=== PATIENT | female | born 1970 | race Caucasian/White ===

== ENCOUNTER 2019-06-19 09:42 | Day surgery (SDC) | payer OTHER ==
[2019-06-17 15:15] VITALS: BMI 29.9
[~2019-06-19 09:42] MED LIST: LACTATED RINGERS 1,000 ML IV SCH; LIDOCAINE 1% 20 ML VIAL (10MG/ML) FOR IV START INTRADERMA PRN
[2019-06-19 10:14] VITALS: TEMP 98.3
[2019-06-19] MEDS ORDERED: PROPOFOL 10 MG/ML 20 ML VIAL IV ONE (11:49)
--- NOTE | 2019-06-19 11:51 | P.GSHP ---
History of Present Illness H&P Date: 06/19/19 Chief Complaint: GERD This is a 48-year-old female referred from Dr. Isabel. Patient complaints of GERD. Patient presents today for EGD. Past Medical History Past Medical History: GERD/Reflux, Hypertension, Rheumatoid Arthritis (RA) Additional Past Medical History / Comment(s): "Kidney biopsy at approx 4 yrs of age because kidneys stopped working. No problems since." Borderline high cholestrol. History of Any Multi-Drug Resistant Organisms: None Reported Additional Past Surgical History / Comment(s): Biopsy of kidney. Past Anesthesia/Blood Transfusion Reactions: No Reported Reaction Additional Past Anesthesia/Blood Transfusion Reaction / Comment(s): Adopted, family history unknown. Past Psychological History: No Psychological Hx Reported Smoking Status: Never smoker Past Alcohol Use History: Occasional Past Drug Use History: None Reported - Past Family History Mother Family Medical History: Unable to Obtain Additional Family Medical History / Comment(s): Patient adopted, family history unknown. Medications and Allergies Home Medications Medication Instructions Recorded Confirmed Type Allergy Pill 1 tab PO DAILY PRN 06/17/19 06/19/19 History Bisoprolol-Hctz 5-6.25 mg [Ziac 1 each PO QAM 06/17/19 06/17/19 History 5-6.25] Ibuprofen [Motrin] 800 mg PO DIRECTED PRN 06/17/19 06/17/19 History Omeprazole 40 mg PO DAILY 06/17/19 06/17/19 History Quinapril HCl [Accupril] 40 mg PO QAM 06/17/19 06/17/19 History Allergies Allergy/AdvReac Type Severity Reaction Status Date / Time hydroxychloroquine Allergy Rash/Hives Verified 06/19/19 10:02 [From Plaquenil] sulfasalazine Allergy Photosensit Verified 06/19/19 10:02 [From Azulfidine] ivity Surgical - Exam Vital Signs Temp Pulse Resp BP Pulse Ox 98.3 F 75 17 161/99 99 06/19/19 10:13 06/19/19 10:13 06/19/19 10:13 06/19/19 10:13 06/19/19 10:13 - General well developed, well nourished, no distress - Eyes PERRL - ENT normal pinna - Neck no masses - Respiratory normal expansion - Cardiovascular Rhythm: regular - Abdomen Abdomen: soft, non tender Assessment and Plan Assessment: GERD. We'll perform EGD.
--- NOTE | 2019-06-19 12:04 | P.OP ---
Date of Procedure: 06/19/19 Preoperative Diagnosis: GERD Postoperative Diagnosis: Antral gastritis Esophagitis Procedure(s) Performed: EGD Anesthesia: MAC Surgeon: Sharan Abbasi Pathology: other (Antral, esophagus) Condition: stable Disposition: PACU Description of Procedure: The patient's placed on the endoscopy table in the lateral position. She received IV sedation. The gastroscope placed oropharynx and passed in the esophagus and into the stomach. The scope was then placed through the pylorus. The first and second portion of the duodenum appeared normal. Scope was then brought back the antrum this was mildly inflamed. A biopsies performed. The scope was then retroflexed and the remainder of the stomach appeared normal. There was no significant hiatal hernia. The GE junction was at 47 is. The patient evidence of chronic esophagitis. Several biopsies performed. Esophagus inflamed. The proximal esophagus appeared normal. Scope was withdrawn for patient.
[2019-06-19 12:15] VITALS: RESP 16
[2019-06-19 12:52] VITALS: BP 140/99; PULSE 70
== END 2019-06-19 12:53 | disposition home or self-care (01) ==
LOC: ORWHC2ENDO 09:42
PROVIDERS: ATTEND Surgery
DX: K21.0 Gastro-esophageal reflux disease with esophagitis (principal); I10 Essential (primary) hypertension; K29.50 Unspecified chronic gastritis without bleeding; M06.9 Rheumatoid arthritis, unspecified; Z88.2 Allergy status to sulfonamides; Z79.1 Long term (current) use of non-steroidal anti-inflammatories (NSAID); Z79.899 Other long term (current) drug therapy; Z88.8 Allergy status to other drugs, medicaments and biological substances
CPT/HCPCS: 81025; 88305; 43239; J2704

== ENCOUNTER → 2019-08-31 | Outpatient (CLI) | payer BC, OTHER ==
--- NOTE | 2019-09-03 09:33 | MM ---
Reason for exam: screening (asymptomatic). Last mammogram was performed 2 years and 11 months ago. History: Patient had first child at age 33. Took hormonal contraceptives for 15 years. Physical Findings: A clinical breast exam by your physician is recommended on an annual basis and results should be correlated with mammographic findings. MG Screening Mammo w CAD Bilateral CC and MLO view(s) were taken. Prior study comparison: September 27, 2016, bilateral MG screening mammo w CAD. April 17, 2014, bilateral MG screening mammo w CAD. The breast tissue is heterogeneously dense. This may lower the sensitivity of mammography. There is no discrete abnormality. ASSESSMENT: Negative, BI-RAD 1 RECOMMENDATION: Routine screening mammogram of both breasts in 1 year.
== END | disposition home or self-care (01) ==
LOC: RADMAMWWP 09:29
PROVIDERS: ATTEND Obstetrics & Gynecology
DX: Z12.31 Encounter for screening mammogram for malignant neoplasm of breast (principal)
CPT/HCPCS: 77067

== ENCOUNTER 2020-03-08 16:38 | Emergency (ER) | payer BC ==
[2020-03-08 16:46] VITALS: PULSE 91; TEMP 98
[2020-03-08] MEDS ORDERED: MECLIZINE 12.5 MG TAB PO STA ×3 (17:01→20:39)
[2020-03-08] MEDS ORDERED: SODIUM CHLORIDE 0.9% 1,000 ML IV STA (17:01)
[2020-03-08] MEDS ORDERED: ONDANSETRON 4 MG/2 ML VIAL IVP STA (17:19)
[2020-03-08 17:35] LABS: ALT 21 U/L (4-34); AST 36 U/L (14-36); African American GFR (CKD) >90 (>60 ml/min/1.73 sqM); Albumin 4.3 g/dL (3.5-5.0); Alkaline Phosphatase 47 U/L (38-126); Anion Gap 7 mmol/L; Blood Urea Nitrogen 16 mg/dL (7-17); Calcium 9.4 mg/dL (8.4-10.2); Carbon Dioxide 23 mmol/L (22-30); Chloride 101 mmol/L (98-107); Glucose 112 mg/dL (74-99); Non-African American GFR(CKD) >90 (>60 ml/min/1.73 sqM); Potassium 3.9 mmol/L (3.5-5.1); Sodium 131 mmol/L (137-145); Total Bilirubin 0.4 mg/dL (0.2-1.3); Total Protein 7.8 g/dL (6.3-8.2)
[2020-03-08 17:47] LABS: Basophils # (A) 0.1 k/uL (0-0.2); Basophils % (A) 1 %; Eosinophils # (A) 0.4 k/uL (0-0.7); Eosinophils % (A) 4 %; HCT 35.2 % (34.0-46.0); HGB 11.8 gm/dL (11.4-16.0); Lymphocytes # (A) 1.8 k/uL (1.0-4.8); Lymphocytes % (A) 20 %; MCH 29.2 pg (25.0-35.0); MCHC 33.4 g/dL (31.0-37.0); MCV 87.4 fL (80.0-100.0); Mean Platelet Volume 8.1; Monocytes # (A) 0.3 k/uL (0-1.0); Monocytes % (A) 3 %; Neutrophils # (A) 6.4 k/uL (1.3-7.7); Neutrophils % (A) 71 %; Platelet Count 340 k/uL (150-450); RBC 4.03 m/uL (3.80-5.40); RDW 15.1 % (11.5-15.5); WBC 9.1 k/uL (3.8-10.6)
--- NOTE | 2020-03-08 18:01 | CT ---
EXAMINATION TYPE: CT brain wo con DATE OF EXAM: 03/08/2020 COMPARISON: None HISTORY: Dizziness. CT DLP: 1072.[address] of the brain was performed. The ventricles, basal cisterns and sulci overlying the cerebral convexities demonstrate a normal appe arance. There is no evidence for intracranial hemorrhage or sulcal effacement. No mass effects are seen. Osseous calvarium is intact. If symptoms persist consider MRI as clinically warranted. IMPRESSION: 1. No acute intracranial process is seen at this time.
[2020-03-08] MEDS ORDERED: KETOROLAC 30 MG/ML 1 ML VIAL IVP STA (18:08)
[2020-03-08 18:09] VITALS: RESP 20
--- NOTE | 2020-03-08 18:11 | ED ---
Dizziness HPI - General Source: patient, RN notes reviewed Mode of arrival: wheelchair Limitations: no limitations <Theo Gallego - Last Filed: 03/08/20 18:05> <Keny Gonzalez - Last Filed: 03/08/20 20:39> - General Chief Complaint: Dizziness Stated Complaint: poss stroke Time Seen by Provider: 03/08/20 17:01 - History of Present Illness Initial Comments: This a 49-year-old female presents emergency Department with chief complaint of dizziness. Patient states that she went to lay back in her chair states that sh e became very dizzy at that time. Patient states she sat up symptoms worsen. She states it was like to room was spinning or was wavy-like. Patient states that she has a very mild headache. Patient states that she has no associated focal weakness no chest pain or shortness breath. Patient does have a history of hypertension. Patient states that the dizziness is improved if she sits still but still is there. Patient denies any recent URI symptoms no ear pain. No history of vertigo. Patient states that she had some right arm tingling states that she had her arm propped a prolonged period time states when she brought it down symptoms resolved. She denies any associated weakness. (Theo Gallego) - Related Data Home Medications Medication Instructions Recorded Confirmed Bisoprolol-Hctz 5-6.25 mg [Ziac 1 tab PO QAM 06/17/19 03/08/20 5-6.25] Ibuprofen [Motrin] 800 mg PO TID PRN 06/17/19 03/08/20 Quinapril HCl [Accupril] 40 mg PO QAM 06/17/19 03/08/20 Cetirizine HCl [Zyrtec] 10 mg PO DAILY PRN 03/08/20 03/08/20 Omeprazole 40 mg PO DAILY 03/08/20 03/08/20 Vitamin B Complex 1 tab PO DAILY 03/08/20 03/08/20 Previous Rx's Medication Instructions Recorded Meclizine [Antivert] 25 mg PO TID PRN #12 tab 03/08/20 Metoclopramide HCl [Reglan] 10 mg PO Q6HR PRN #15 tablet 03/08/20 Allergies Allergy/AdvReac Type Severity Reaction Status Date / Time hydroxychloroquine Allergy Rash/Hives Verified 03/08/20 18:07 [From Plaquenil] sulfasalazine Allergy Photosensit Verified 03/08/20 18:07 [From Azulfidine] ivity Review of Systems ROS Other: All systems not noted in ROS Statement are negative. <Theo Gallego - Last Filed: 03/08/20 18:05> ROS Other: All systems not noted in ROS Statement are negative. <Keny Gonzalez - Last Filed: 03/08/20 20:39> ROS Statement: Those systems with pertinent positive or pertinent negative responses have been documented in the HPI. Past Medical History Past Medical History: GERD/Reflux, Hypertension, Rheumatoid Arthritis (RA) Additional Past Medical History / Comment(s): "Kidney biopsy at approx 4 yrs of age because kidneys stopped working. No problems since." Borderline high cholestrol. History of Any Multi-Drug Resistant Organisms: None Reported Additional Past Surgical History / Comment(s): Biopsy of kidney. Past Anesthesia/Blood Transfusion Reactions: No Reported Reaction Additional Past Anesthesia/Blood Transfusion Reaction / Comment(s): Adopted, family history unknown. Past Psychological History: No Psychological Hx Reported Smoking Status: Never smoker Past Alcohol Use History: Occasional Past Drug Use History: None Reported - Past Family History Mother Family Medical History: Unable to Obtain Additional Family Medical History / Comment(s): Patient adopted, family history unknown. <Theo Gallego - Last Filed: 03/08/20 18:05> General Exam Limitations: no limitations General appearance: alert, in no apparent distress Head exam: Present: atraumatic, normocephalic, normal inspection Eye exam: Present: normal appearance, PERRL, EOMI, nystagmus. Absent: scleral icterus, conjunctival injection, periorbital swelling ENT exam: Present: normal exam, mucous membranes moist Neck exam: Present: normal inspection, full ROM. Absent: tenderness, meningismus, lymphadenopathy Respiratory exam: Present: normal lung sounds bilaterally, decreased breath sounds. Absent: respiratory distress, wheezes, rales, rhonchi, stridor Cardiovascular Exam: Present: regular rate, normal rhythm, normal heart sounds. Absent: systolic murmur, diastolic murmur, rubs, gallop, clicks GI/Abdominal exam: Present: soft, normal bowel sounds. Absent: distended, ten derness, guarding, rebound, rigid Neurological exam: Present: alert, oriented X3, CN II-XII intact, reflexes normal. Absent: motor sensory deficit Skin exam: Present: warm, dry, intact, normal color. Absent: rash <Theo Gallego - Last Filed: 03/08/20 18:05> Course Vital Signs 03/08/20 03/08/20 03/08/20 16:41 16:46 17:46 Temperature 98 F Pulse Rate 91 Respiratory 18 20 20 Rate Blood Pressure 145/101 140/100 O2 Sat by Pulse 100 Oximetry 03/08/20 03/08/20 18:46 19:00 Temperature Pulse Rate Respiratory 20 20 Rate Blood Pressure 143/102 O2 Sat by Pulse Oximetry Medical Decision Making - Lab Data Result diagrams: 03/08/20 17:35 03/08/20 17:10 <Theo Gallego - Last Filed: 03/08/20 18:05> - Lab Data Result diagrams: 03/08/20 17:35 03/08/20 17:10 - Radiology Data Radiology results: report reviewed (Computed tomography scan the brain reveals no acute process) <Keny Gonzalez - Last Filed: 03/08/20 20:39> - Medical Decision Making Patient reevaluated by myself, Dr. Gonzalez. Patient feeling much better. Patient was able to get up and ambulate without difficulty. Patient states symptoms are near resolved and does request discharge home. is present and in agr eement. Patient ever hitting speech problems or weakness. Onset of symptoms was sudden. Symptoms were positional. (Keny Gonzalez) - Lab Data Lab Results 03/08/20 03/08/20 03/08/20 Range/Units 17:10 17:10 17:35 WBC 9.1 (3.8-10.6) k/uL RBC 4.03 (3.80-5.40) m/uL Hgb 11.8 (11.4-16.0) gm/dL Hct 35.2 (34.0-46.0) % MCV 87.4 (80.0-100.0) fL MCH 29.2 (25.0-35.0) pg MCHC 33.4 (31.0-37.0) g/dL RDW 15.1 (11.5-15.5) % Plt Count 340 (150-450) k/uL Neutrophils % 71 % Lymphocytes % 20 % Monocytes % 3 % Eosinophils % 4 % Basophils % 1 % Neutrophils # 6.4 (1.3-7.7) k/uL Lymphocytes # 1.8 (1.0-4.8) k/uL Monocytes # 0.3 (0-1.0) k/uL Eosinophils # 0.4 (0-0.7) k/uL Basophils # 0.1 (0-0.2) k/uL Sodium 131 L (137-145) mmol/L Potassium 3.9 (3.5-5.1) mmol/L Chloride 101 (98-107) mmol/L Carbon Dioxide 23 (22-30) mmol/L Anion Gap 7 mmol/L BUN 16 (7-17) mg/dL Creatinine 0.78 (0.52-1.04) mg/dL Est GFR (CKD-EPI)AfAm >90 (>60 ml/min/1.73 sqM) Est GFR (CKD-EPI)NonAf >90 (>60 ml/min/1.73 sqM) Glucose 112 H (74-99) mg/dL Calcium 9.4 (8.4-10.2) mg/dL Total Bilirubin 0.4 (0.2-1.3) mg/dL AST 36 (14-36) U/L ALT 21 (4-34) U/L Alkaline Phosphatase 47 (38-126) U/L Troponin I <0.012 (0.000-0.034) ng/mL Total Protein 7.8 (6.3-8.2) g/dL Albumin 4.3 (3.5-5.0) g/dL Disposition <Theo Gallego - Last Filed: 03/08/20 18:05> Is patient prescribed a controlled substance at d/c from ED?: No Time of Disposition: 20:39 <Keny Gonzalez - Last Filed: 03/08/20 20:39> Clinical Impression: Vertigo Disposition: HOME SELF-CARE Condition: Stable Instructions (If sedation given, give patient instructions): Dizziness (ED) Additional Instructions: Please follow-up with primary care physician in the next 2 for recheck. Return for uncontrolled dizziness, vomiting, confusion, passing out, weakness, worsening or changing symptoms or other concerns. [id number] Antivert as needed. Prescription sent to [facility] Prescriptions: Meclizine [Antivert] 25 mg PO TID PRN #12 tab PRN Reason: dizziness Metoclopramide HCl [Reglan] 10 mg PO Q6HR PRN #15 tablet PRN Reason: Nausea Referrals: Ghulam Travis MD [Primary Care Provider] - 1-2 days
[2020-03-08] MEDS ORDERED: DIAZEPAM 5 MG/ML 2 ML INJ IVP STA (18:15)
[2020-03-08] MEDS ORDERED: METOCLOPRAMIDE 5 MG/ML 2 ML VIAL IVP STA (19:00)
[2020-03-08 21:18] VITALS: BP 128/89
== END 2020-03-08 21:18 | disposition home or self-care (01) ==
LOC: EC 16:38
DX: R42 Dizziness and giddiness (principal); R51 Headache; I10 Essential (primary) hypertension; K21.9 Gastro-esophageal reflux disease without esophagitis; Z79.899 Other long term (current) drug therapy; Z88.8 Allergy status to other drugs, medicaments and biological substances; Z88.2 Allergy status to sulfonamides
CPT/HCPCS: 36415; 93005; 80053; 84484; 85025; 70450; 99284; 96374; 96375 ×3; 96361; J2765; J3360; J2405; J1885

== ENCOUNTER → 2022-09-26 | Outpatient (CLI) | payer BC | END | disposition home or self-care (01) | LOC: LABWHC1 16:31 | PROVIDERS: ATTEND Internal Medicine Rheumatology | DX: M05.79 Rheumatoid arthritis with rheumatoid factor of multiple sites without organ or systems involvement (principal); Z79.899 Other long term (current) drug therapy | CPT/HCPCS: 36415; 85652; 86140 ==

== ENCOUNTER → 2023-06-28 | Outpatient (CLI) | payer BC ==
--- NOTE | 2023-06-30 08:30 | MM ---
Reason for Exam: Screening (asymptomatic). Last mammogram was performed 3 year(s) and 10 month(s) ago. Patient History: Menarche at age 14. First Full-Term at age 33. Late child-bearing (after 30). Patient used Hormonal Contraceptives for 15 years. Risk Values: Sharon 5 year model risk: 1.3%. NCI Lifetime model risk: 12.1%. Prior Study Comparison: 04/17/2014 Bilateral Screening Mammogram, [facility]. 09/27/2016 Bilateral Screening Mammogram, [facility]. 08/31/2019 Bilateral Screening Mammogram, [facility]. Tissue Density: The breast tissue is heterogeneously dense. This may lower the sensitivity of mammography. Findings: Analyzed By CAD. There is no suspicious group of microcalcifications or new suspicious mass in either breast. Overall Assessment: Negative, BI-RAD 1 Management: Screening Mammogram of both breasts in 1 year. A clinical breast exam by your physician is recommended on an annual basis and results should be correlated with mammographic findings. Note on Sharon scores and lifetime risk: 1. A Sharon score greater than 3% is considered moderate risk. If this is the case, consider specialist referral to assess eligibility for a risk reducing agent. If overall lifetime risk for the development of breast cancer is 20% or higher, the patient may qualify for future screening with alternating mammogram and breast MRI. Electronically signed and approved by: Pedro Luis Godfrey D.O.
== END | disposition home or self-care (01) ==
LOC: RADMAMWWP 11:48
PROVIDERS: ATTEND Obstetrics & Gynecology
DX: Z12.31 Encounter for screening mammogram for malignant neoplasm of breast (principal)
CPT/HCPCS: 77063; 77067

== ENCOUNTER → 2023-07-25 | Outpatient (CLI) | payer BC ==
--- NOTE | 2023-07-26 07:54 | US ---
EXAMINATION TYPE: US pelvis complete transvag DATE OF EXAM: 07/25/2023 COMPARISON: 06/15/23 CLINICAL INDICATION: Female, 52 years old with history of N83.202 UNSPECIFIED OVARIAN CYST, LEFT SIDE ; follow up on CYNDI cyst TECHNIQUE: . Transabdominal sonographic images of the pelvis were acquired. Transvaginal sonographi c images were medically necessary to better assess the following anatomy: uterus and ovaries Date of LMP: March 2023 EXAM MEASUREMENTS: Uterus: 10.1 x 5.8 x 4.9 cm Endometrial Stripe: Not well visualized due to IUD Right Ovary: 1.5 x 1.3 x 0.8 cm Left Ovary: 1.8 x 0.9 x 1.1 cm 1. Uterus: Anteverted Heterogeneous. 2 fibroids seen. Largest = 3.8 x 3.3 x 2.9cm 2. Endometrium: Not well visualized. IUD appears to be in place 3. Right Ovary: wnl 4. Left Ovary: wnl Spectral, color and waveform doppler imaging shows good arterial and venous flow within the ovaries ; there is no evidence for ovarian torsion. 5. Bilateral Adnexa: wnl 6. Posterior cul-de-sac: wnl IMPRESSION: 1. Resolution of previously demonstrated left ovarian cystic lesion. 2. Fibroid changes of the uterus renal shadow. 3. IUD is in stable position from prior examination.
== END | disposition home or self-care (01) ==
LOC: RADUSWWP 16:03
PROVIDERS: ATTEND Family Medicine
DX: N83.202 Unspecified ovarian cyst, left side (principal); D25.9 Leiomyoma of uterus, unspecified; N83.8 Other noninflammatory disorders of ovary, fallopian tube and broad ligament
CPT/HCPCS: 76830; 76856

== ENCOUNTER → 2025-03-13 | Outpatient (CLI) | payer BC ==
--- NOTE | 2025-03-13 12:16 | MM ---
Reason for Exam: Screening (asymptomatic). Last mammogram was performed 1 year(s) and 8 month(s) ago. Patient History: Menarche at age 14. First Full-Term at age 33. Late child-bearing (after 30). Patient used Hormonal Contraceptives for 15 years. Risk Values: Sharon 5 year model risk: 1.5%. NCI Lifetime model risk: 11.8%. Prior Study Comparison: 09/27/2016 Bilateral Screening Mammogram, [facility]. 08/31/2019 Bilateral Screening Mammogram, [facility]. 06/28/2023 Bilateral MG 3D screening mammo w/cad, [facility]. Tissue Density: The breasts are heterogeneously dense, which may obscure small masses. Findings: Analyzed By CAD. There is no suspicious group of microcalcifications in either breast. Asymmetric nodular density seen best on the left CC view just lateral to the level of the nipple measures 5 to 6 mm and 6 cm from the nipple. Additional views are recommended. Overall Assessment: Incomplete: need additional imaging evaluation, BI-RAD 0 Management: Diagnostic Mammogram of the left breast. . Patient should continue monthly self-breast exams. A clinical breast exam by your physician is recommended on an annual basis. This exam should not preclude additional follow-up of suspicious palpable abnormalities. Note on Sharon scores and lifetime risk: 1. A Sharon score greater than 3% is considered moderate risk. If this is the case, consider specialist referral to assess eligibility for a risk reducing agent. 2. If overall lifetime risk for the development of breast cancer is 20% or higher, the patient may qualify for future screening with alternating mammogram and breast MRI. [facility], , 03/13/2025 12:12 PM. Electronically signed and approved by: Juancarlos Winchester M.D. Radiologis
== END | disposition home or self-care (01) ==
LOC: RADMAMWWP 11:31
PROVIDERS: ATTEND Family Medicine
DX: Z12.31 Encounter for screening mammogram for malignant neoplasm of breast (principal); R92.333 Mammographic heterogeneous density, bilateral breasts; Z92.0 Personal history of contraception
CPT/HCPCS: 77063; 77067

== ENCOUNTER → 2025-03-19 | Outpatient (CLI) | payer BC ==
--- NOTE | 2025-03-19 13:19 | MM ---
Reason for Exam: Additional evaluation requested from abnormal screening. Last screening mammogram was performed less than 1 month ago. Patient History: Menarche at age 14. First Full-Term at age 33. Late child-bearing (after 30). Patient used Hormonal Contraceptives for 15 years. Risk Values: Sharon 5 year model risk: 1.5%. NCI Lifetime model risk: 11.8%. Prior Study Comparison: 08/31/2019 Bilateral Screening Mammogram, [facility]. 06/28/2023 Bilateral MG 3D screening mammo w/cad, [facility]. 03/13/2025 Bilateral MG 3D screening mammo w/cad, [facility]. Tissue Density: Left: The breasts are heterogeneously dense, which may obscure small masses. Findings: Analyzed By CAD. Asymmetric nodular density appears less conspicuous. Precautionary six-month follow-up mammography of the left breast is recommended. Overall Assessment: Probably benign, BI-RAD 3 Management: Diagnostic Mammogram of the left breast in 6 months. . Results were given to the patient verbally at the time of exam. Patient should continue monthly self-breast exams. A clinical breast exam by your physician is recommended on an annual basis. This exam should not preclude additional follow-up of suspicious palpable abnormalities. Note on Sharon scores and lifetime risk: 1. A Hsaron score greater than 3% is considered moderate risk. If this is the case, consider specialist referral to assess eligibility for a risk reducing agent. 2. If overall lifetime risk for the development of breast cancer is 20% or higher, the patient may qualify for future screening with alternating mammogram and breast MRI. [facility], , 03/19/2025 1:17 PM. Electronically signed and approved by: Juancarlos Winchester M.D. Radiologis
== END | disposition home or self-care (01) ==
LOC: RADMAMWWP 12:39
PROVIDERS: ATTEND Family Medicine
DX: R92.8 Other abnormal and inconclusive findings on diagnostic imaging of breast (principal); R92.332 Mammographic heterogeneous density, left breast; Z92.0 Personal history of contraception
CPT/HCPCS: 77061; 77065